=== PATIENT | male | born 1945 | race Caucasian/White ===

== ENCOUNTER 2016-07-15 02:19 | Emergency (ER) | payer OTHER ==
[2016-07-15] MEDS ORDERED: OPTIRAY 350 100 ML VIAL HMH IV ONE (02:20)
[2016-07-15] MEDS ORDERED: DILAUDID 1 MG/ML AMP ONE ×2 (03:01→04:45)
[2016-07-15] MEDS ORDERED: ONDANSETRON 4 MG VIAL ONE (04:45)
== END 2016-07-15 06:17 | disposition home or self-care (01) ==
LOC: ER 02:19
CPT/HCPCS: 71010 ×2; 74177 ×2; 96374 ×2; 96376 ×2; 99285; J1170; J2405; Q9967

== ENCOUNTER 2016-07-21 14:56 | Emergency (ER) | payer OTHER | END 2016-07-21 19:03 | disposition home or self-care (01) | LOC: ER 14:56 | CPT/HCPCS: 74022 ==